=== PATIENT | female | born 1955 | race Caucasian/White ===

== ENCOUNTER → 2019-07-27 10:32 | Outpatient (CLI) | payer MEDICARE, OTHER ==
[~2019-07-27 10:32] MED LIST: ALENDRONAT70 MG/75 M PO; ATIVAN0.5 MG PO; CELEXA40 MG PO; GLUCOPHAGE500 MG PO; HUMULIN N100 U/ML SC; LIPITOR20 MG PO; MOBIC7.5 MG PO; TRAZODONE HCL150 MG PO
--- NOTE | 2019-07-29 14:22 | EC ---
PATIENT:NU NORTON DATE OF SERVICE: 07/27/19 SEX: F MEDICAL RECORD: [id number] DATE OF : 53 LOCATION:[facility] AGE OF PATIENT: 64 ADMISSION DATE: 07/27/19 REFERRING PHYSICIAN: INTERPRETING PHYSICIAN: YUMIKO MONTOYA MD ECHOCARDIOGRAM REPORT ECHO CHARGES 4 ECHO COMPLETE Date: 07/27/19 CLINICAL DIAGNOSIS: HEART MURMUR ECHOCARDIOGRAPHIC MEASUREMENTS (adult normal given) AC root (d.<3.7cm) 3.1 cm LV Septum d (<1.2 cm> 1.4 cm Valve Excursion 1.6 cm LV Septum (systole) 1.6 cm Left Atria (s.<4.0cm> 3.8 cm LVPW d(<1.2cm) 1.5 cm RV (d.<2.3cm) 2.5 cm LVPW (sytole) 1.9 cm LV diastole(<5.6CM) 4.2 cm MV E-F(>70mm/sec) cm LV systole 2.5 cm LVOT Diameter 1.9 cm MV exc.(>10mm) 1.2 cm Est.ejection fraction (50-75%) % DOPPLER: LVIT cm/sec A 100.0cm/sec E 91.0 cm/sec LA cm/sec RVSP 21 mmHg LVOT 101 cm/sec AOP1/2T 772 m/s Asc. Ao 150 cm/sec RVOT 77 cm/sec RA cm/sec PA 105 cm/sec AV Gradient Peak 9.00 mmHg AV Mean 4.95 mmHg AV Area 2.4 cm MV Gradient Peak 5.54 mmHg MV Mean 1.89 mmHg MV Area cm COMMENTS: Director Of Compliance: 2 VELASQUEZ MONTOYA Debt And Budget Counselor: 3 Dr. Jackson TAPE# PACS Pericardial Effusion N DATE OF SERVICE: 07/27/2019 Adequate 2D, color flow imaging, spectral Doppler, and M-Mode Mild LVH. LV internal dimension is normal. Wall motion is normal. EF is greater than or equal to 55%. Aortic valve is tricuspid. No evidence of stenosis by Doppler interrogation. Left atrium is normal at 3.8 cm. Mitral valve shows no prolapse. Trace MR. Right-sided chambers are grossly normal. Trace TR. Mild aortic insufficiency by color flow imaging. ECHOCARDIOGRAM REPORT [id number] NU NORTON TRANSINT:[id number] Voice Confirmation ID: [id number] DOCUMENT ID: [id number] YUMIKO MONTOYA MD at 1422 CC: [id number] DICTATION DATE: 07/28/191423 CAMPUS RECRUITING INTERN: 07/28/19 2326 [facility] CLI 07/27/19 [place] [id number] [place] [id number]
--- NOTE | 2019-07-30 09:14 | ST ---
PATIENT:NU NORTON MEDICAL RECORD: [id number] SEX: F LOCATION:[facility] ORDER #: ADMISSION DATE: 07/27/19 AGE OF PATIENT: 64 REFERRING PHYSICIAN: INTERPRETING PHYSICIAN: ANEL SHIELDS MD DATE OF SERVICE: 07/27/2019 Nuclear Stress Test INDICATIONS: Angina, shortness of breath, abnormal ECG, hypertension, hyperlipidemia, diabetes. The patient was exercised on standard Lexiscan protocol with 33 mCi of sestamibi injected at peak stress, 10 mCi used previously for rest images. FINDINGS: Gated SPECT reveals preserved ejection fraction at 69% with good wall motioning and thickening and brightening throughout all segments. SPECT Imaging: Cardiolite was used as myocardial perfusion agent. There is reversibility anteriorly, apically, and laterally, which includes the basal, mid, apical anterior segments, apical lateral, mid lateral, basal lateral segments as well as the apex itself. The degree of her reversibility is moderate. The amount of myocardium involved is very large. OVERALL IMPRESSION: This is markedly abnormal high-risk nuclear stress test, reversibility throughout the anterior, apical, and lateral segments suggestive of multivessel coronary artery disease. TRANSINT:[id number] Voice Confirmation ID: [id number] DOCUMENT ID: [id number] ANEL SHIEDLS MD at 0914 CC: SCOTTY BOURGEOIS [id number] DICTATION DATE: 07/28/19 1119 ALUMINUM HYDROXIDE PROCESS OPERATOR: 07/29/19 0455 [facility] CLI 07/27/19 [place] [id number] [place] [id number]
[2019-08-05 12:39] VITALS: BMI 27.5
== END | disposition home or self-care (01) ==
LOC: D.HCCARDIO 10:32 → D.HCCECHO 11:30
PROVIDERS: ATTEND Internal Medicine Interventional Cardiology
DX: I20.9 Angina pectoris, unspecified (principal)

== ENCOUNTER 2019-08-05 11:22 | Outpatient (CLI) | payer MEDICARE, OTHER ==
[~2019-08-05] VITALS: Ht 162.6 cm; Wt 72.7 kg
--- NOTE | ~2019-08-05 | HEMODYNAMI ---
PATIENT:NU NORTON MEDICAL RECORD: [id number] : 53 LOCATION:[facility] ADMISSION DATE: 08/05/19 Generatedon:08/05/201914:22 Patient name: NU NORTON Patient #: [id number] SSN: DO B: 1955 Date of study: 08/05/2019 Page: Of Hemodynamic Procedure Report Patient Data Patient Demographics Procedure consent was obtained First Name: NU Gender: Female Last Name: ERROL : 1955 Patient #: [id number] Age: 64 year(s) Race: Additional ID: [id number] Contact details Address: [address] [place] [address] State: [place] City: [place] Zip code: [address] Past Medical History Allergies Allergen Reaction Date Comments Reported Other allergy 08/05/2019 LISINOPRIL Admission Admission Data Admission Date: 08/05/2019 Admission Time: 11:22 Arrival Date: 08/05/2019 Arrival Time: 0:00 Height (in.): 63.78 BSA: 1.78 (m2) Height (cm.): 162 BMI: 27.82 (kg/m2) Weight (lbs.): 160.94 Weight (kg.): 73 Lab Results Lab Result Date: 08/05/2019 Lab Result Time: 0:00 Biochemistry Name Units Result Min Max BUN mg/dl 13 --(--*-)-- 7 18 Creatinine mg/dl 0.7 --(*---)-- 0.6 1.3 eGFR ml/min 88.93523 -*(----)-- 90 120 NONAFRICAN CBC Name Units Result Min Max Hematocrit % 39.3 -*(----)-- 42 54 Hemoglobin g/dl 13.1 -*(----)-- 13.5 17.5 Procedure Procedure Types Cath Procedure Diagnostic Procedure LHC LHC w/Coronaries Procedure Description Procedure Date Procedure Date: 08/05/2019 Procedure Start Time: 14:06 Procedure End Time: 14:19 Procedure Staff Name Function Mariusz Rincon MD Performing Physician Radha Bowser RT Monitor Kim Gibson RT Scrub Austin Gusman RN Nurse Procedure Data Cath Procedure Fluoroscopy Diagnostic fluoroscopy Total fluoroscopy Time: 3.6 time: 3.6 min min Diagnostic fluoroscopy Total fluoroscopy dose: 343 dose: 343 mGy mGy Contrast Material Contrast Material Type Amount (ml) Isovue 300 73 Entry Location Entry Primary Successful Side Size Upsize Upsize Entry Closure Jj ccessful Closure Location (Fr) 1 (Fr) 2 (Fr) Remarks Device Remarks Radial Right 6 Fr Mechanical artery Short Compression Estimated blood loss: 5 ml Diagnostic catheters Device Type Used For End Catheter Placement DIAGNOSTIC [place] 110cm 5 Procedure Fr catheter ([id number]) DIAGNOSTIC JL 3.5 5Fr Procedure catheter ([id number]) Procedure Complications No complications Procedure Medications Medication Administration Route Dosage 0.9% NaCl I.V. 100 ml/hr Oxygen etCO2 Nasal cannula 2 l/min Heparin Flush Bag added to field 2 bags (1000units/500ml NS) Lidocaine 2% added to field 20 Radial Cocktail added to field 1 syringe (Verapamil 2mg/Nitro 400mcg/Heparin 1500units) Versed I.V. 2 mg Fentanyl I.V. 100 mcg Radial Cocktail I.A. 1 syringe (Verapamil 2mg/Nitro 400mcg/Heparin 1500units) Versed I.V. 1 mg Hemodynamics Rest BSA: 1.78 (m2) HGB: 13.1 (g/dl) O2 Consumption: Estimated: 157.61 (ml/min) O2 Co nsumption indexed: Estimated:88.54 (ml/min/m) Heart Rate: 57 (bpm) Pressure Samples Time Site Value (mmHg) Purpose Heart Use Rate(bpm) 14:11 LV 107/1,7 Snapshot 76 Gradients Valve Time Site Site Mean SEP/DFP Peak To Heart Use 1 2 (mmHg) (sec/min) Peak Rate (mmHg) (bpm) Aortic 14:11 LV AO 70 Snapshots Pre Cath Intra NCS Post Cath Vital Signs Time Heart Resp SPO2 etCO2 NIBP Rhythm Pain Sedation Rate (ipm) (%) (mmHg) (mmHg) Status Level (bpm) 13:58:40 55 10 98 43.4 146/69(83) NSR 0 (11) 10(A) , No pain 14:02:58 53 17 92 45.6 116/58(88) NSR 0 (11) 10(A) , No pain 14:07:10 56 12 96 47.9 118/63(96) NSR 0 (11) 10(A) , No pain 14:11:22 65 18 92 45.6 107/42(65) NSR 0 (11) 10(A) , No pain 14:15:38 61 18 94 45.7 103/51(71) NSR 0 (11) 9(A) , No pain 14:19:52 62 13 95 44.9 111/55(77) NSR 0 (11) 9(A) , No pain Medications Time Medication Route Dose Verified Delivered Reason Notes Effectiveness by by 13:58:09 0.9% NaCl I.V. 100 Austin Austin Per ml/hr Naseem Gusman physician RN RN 13:58:18 Oxygen etCO2 2 l/min Austin Austin for low 02 Nasal Lorigan Naseem sats cannula RN RN 13:58:26 Heparin Flush added 2 bags Austin Austin used for Bag to Nsaeem Gusman procedure (1000units/500ml field CARLOS RN NS) 13:58:36 Lidocaine 2% added 20ml Austin Austin for local to vial Lorigan Lorigan anesthetic field CARLOS RN 13:58:46 Radial Cocktail added 1 Austin Autsin used for (Verapamil to syringe Lorigan Lorigan procedure 2mg/Nitro field BREANNA CARLOS 400mcg/Heparin 1500units) 14:06:05 Versed I.V. 2 mg Austin Austin for sedation Naseem Gusman RN, RN 14:07:11 Fentanyl I.V. 100 mcg Austin Austin for sedation Naseem Gusman RN, RN 14:09:42 Radial Cocktail I.A. 1 Austin Mariusz for (Verapamil syringe Lorigan Sergey vasodilation 2mg/Nitro BREANNA [facility] 400mcg/Heparin 1500units) 14:09:55 Versed I.V. 1 mg Austin Austin for sedation Naseem Gusman RN, RN Procedure Log Time Note 13:40:25 Austin Gusman RN sent for patient. Start room use. 13:46:33 Procedure Status Elective Heart Cath (OP). 13:46:34 Time tracking: Regular hours (M-F 7:00 - 5:00) 13:46:38 Plan of Care:Hemodynamics will remain stable., Cardiac rhythm will remain stable., Comfort level will be maintained., Respiratory function will remain adequate., Patient/ family verbilizes understanding of procedure., Procedure tolerated without complication., Recovers from procedure without complications.. 13:47:06 H&P Date Dictated: 07/17/2019 Within 30 days and on chart., H&P Addendum completed by physician on day of procedure. (MUST COMPLETE FOR ALL OUTPATIENTS). 13:47:23 Patient allergic to Other allergyLISINOPRIL 13:48:09 Informed consent obtained and on chart 13:48:22 Patient Weight : 160.94 lbs 13:48:25 Patient Height : 63.78 inches 13:48:29 Arrival Date: 08/05/2019 12:00:00 AM 13:49:03 Lab Result : Hemoglobin 13.1 g/dl 13:49:03 Lab Result : eGFR NONAFRICAN 88.44036 ml/min 13:49:03 Lab Result : BUN 13 mg/dl 13:49:03 Lab Result : Creatinine 0.7 mg/dl 13:49:03 Lab Result : Hematocrit 39.3 % 13:49:11 Patient received from Pre/Post Procedure Room to CCL 1 Alert and oriented. Tansferred to table in Supine position. 13:49:12 Warm blankets applied, and vivienne hugger turned on for patient comfort. 13:49:13 Correct patient and procedure confirmed by team. 13:49:13 ECG and BP/O2 sat monitors applied to patient. 13:57:27 Vital chart was started 13:57:29 Baseline sample Acquired. 13:57:34 Rhythm: sinus bradycardia 13:57:38 Full Disclosure recording started 13:57:39 Pre-procedure instructions explained to patient. 13:57:39 Pre-op teaching completed and patient verbalized understanding. 13:57:41 Family in patients room. 13:57:42 Patient NPO since Midnight. 13:57:45 Is the patient allergic to Iodine/contrast media? No. 13:57:47 Is patient on blood thinner?No 13:57:49 Patient diabetic? Yes. 13:57:50 If diabetic: On Metformin? Yes 13:57:54 If on Metformin: Last Dose? 08/03/2019 13:58:04 Previous problem with sedation/anesthesia? No ? 13:58:06 Snore? Yes 13:58:07 Sleep apnea? No 13:58:09 0.9% NaCl 100 ml/hr I.V. was administered by Austin Gusman RN; Per physician; Verbal order read back and verified. 13:58:09 Deviated septum? No 13:58:11 Opens mouth fully? Yes 13:58:12 Sticks out tongue? Yes 13:58:14 Airway obstruction? No ? 13:58:16 Dentures? No ? 13:58:18 Oxygen 2 l/min etCO2 Nasal cannula was administered by Austin Gusman RN; for low 02 sats; Verbal order read back and verified. 13:58:18 Pre procedure: right dorsailis pedis pulse 2+ Normal; easily identifiable; not easily obliterated 13:58:21 Modified Rodney's test Ulnar < 7 seconds 13:58:26 Heparin Flush Bag (1000units/500ml NS) 2 bags added to field was administered by Austin Gusman RN; used for procedure; Verbal order read back and verified. 13:58:26 Patient pain scale 0/10 .. 13:58:33 IV patent on arrival in left hand with 0.9% NaCl at [facility]. 13:58:35 Lab results completed and on chart. 13:58:36 Lidocaine 2% 20ml vial added to field was administered by Austin Gusman RN; for local anesthetic; Verbal order read back and verified. 13:58:42 Right Radial & Right Groin area was prepped with chlora-prep and draped in sterile fashion 13:58:43 Alarms reviewed by R. N. 13:58:44 Sharps counted by scrub and verified by R.N. 13:58:46 Radial Cocktail (Verapamil 2mg/Nitro 400mcg/Heparin 1500units) 1 syringe added to field was administered by Austin Gusman RN; used for procedure; Verbal order read back and verified. 13:58:46 Use device set Radial Dx or PCI 13:58:47 ACIST Syringe (33731) opened to sterile field. 13:58:48 ACIST Hand Control (44517) opened to sterile field. 13:58:49 Bag Decanter (2001S) opened to sterile field. 13:58:50 ACIST Manifold (50338) opened to sterile field. 13:58:50 Tegaderm 4 x 4 (1626W) opened to sterile field. 13:58:52 Medline Cath Pack ([id number]) opened to sterile field. 13:58:52 MBrace Wrist Support (981148396) opened to sterile field. 13:58:53 EMERALD Guide Wire (665-766) opened to sterile field. 13:58:54 SHEATH 6FR RAIN (2474342) opened to sterile field. 14:03:37 --------ALL STOP TIME OUT------ 14:03:38 Final Timeout: patient, procedure, and site verified with staff and physician. All members of the team are in agreement. 14:03:40 Right Radial & Right Groin site verified by team. 14:03:44 Fire Safety Assessment: A--An alcohol-based skin anteseptic being used preoperatively., C--Open oxygen or nitrous oxide is being used., D--An ESU, laser, or fiber-optic light is being used. 14:03:47 Physical assessment completed. ASA score P 2 - A patient with mild systemic disease as per Mariusz Rincon MD. 14:03:49 2) 60-89 Mildly reduced kidney function, and other findings (as for stage 1) point to kidney disease. 14:03:52 Maximum allowable contrast dose (3.7 X eGFR X 0.75)247 ml. 14:03:56 Sedation plan: IV Moderate Sedation Medication:Versed, Fentanyl 14:06:01 Procedure started. 14:06:05 Versed 2 mg I.V. was administered by Austin Gusman RN; for sedation; Verbal order read back and verified. 14:06:18 Local anesthetic to right radial artery with Lidocaine 2% by Mariusz Rincon MD.INITIAL ACCESS ONLY 14:07:11 Fentanyl 100 mcg I.V. was administered by Austin Gusman RN; for sedation; Verbal order read back and verified. 14:09:22 A 6 Fr Short sheath was inserted into the Right Radial artery 14:09:42 Radial Cocktail (Verapamil 2mg/Nitro 400mcg/Heparin 1500units) 1 syringe I.A. was administered by Mariusz Rincon MD; for vasodilation; Verbal order read back and verified. 14:09:43 A DIAGNOSTIC [place] 110cm 5 Fr catheter (741674) was advanced over the wire and used for Procedure. 14:09:55 Versed 1 mg I.V. was administered by Austin Gusman RN; for sedation; Verbal order read back and verified. 14:10:46 LV gram done using JONES 14:10:50 Injector settings: Ml/sec: 5., Volume: 15, 14:11:06 LV hemodynamics recorded. 14:11:24 EF : 55 % 14:12:12 RCA angiography performed. 14:13:41 Catheter exchanged over wire. 14:13:55 UNABLE TO ENGAGE LCA 14:14:55 A DIAGNOSTIC JL 3.5 5Fr catheter (854247P) was advanced over the wire and used for Procedure. 14:16:27 LCA angiography performed. 14:16:33 Catheter removed. 14:16:44 Procedure ended.(Physican Out) 14:17:34 ZEPHYR REGULAR TR BAND (972437) opened to sterile field. 14:18:06 Sheath removed intact; hemostasis achieved with Mechanical Compression to the Right Radial artery. 14:18:19 Fluoroscopy time 03.60 minutes. 14:18:22 Fluoroscopy dose: 343 mGy 14:18:22 Flurop Dose total: 343 14:18:31 Dose Area Product 86901 mGy/cm. 14:18:35 Contrast amount:Isovue 300 73ml. 14:18:37 Maximum allowable dose exceeded? No. 14:18:38 Sharps counted by scrub and verified by R.N. 14:18:40 [place] band inflated with 10cc of air. 14:18:43 Post-procedure physical assessment completed. ASA score P 2 - A patient with mild systemic disease as per Mariusz Rincon MD. 14:18:49 Post procedure rhythm: sinus rhythm 14:18:53 Estimated blood loss: 5 ml 14:18:56 Post procedure instruction explained to patient.Patient verbalizes understanding. 14:18:59 Patient needs reinforcement of post procedure teaching. 14:19:27 Procedure and supply charges have been captured, reviewed, submitted and are correct. 14:19:30 Procedure Complication : No complications 14:19:32 Vital chart was stopped 14:19:33 See physician's report for complete and final results. 14:19:34 Report given to Pre/Post Procedure Room. 14:19:37 Patient transfered to Pre/Post Procedure Room with Bed. 14:19:39 Procedure ended. 14:19:39 Full Disclosure recording stopped 14:19:44 End room use (Document Last) 14:21:39 End room use (Document Last) 14:21:57 End room use (Document Last) Device Usage Item Name Manufacture Quantity Catalog Hospital Part Current Minima l Lot# / Number Charge Number Stock Stock Serial# Code ACIST Acist 1 07905 046621 490842 614931 20 Syringe Medical (84531) Systems Inc ACIST Hand Acist 1 56876 731907 708889 604120 5 Control Medical (97186) Systems Inc Bag Microtek 1 2001S 688953 60245 609269 5 Decanter Medical Inc. () ACIST Acist 1 35351 967934 021986 023783 5 Manifold Medical (18441) Systems Inc Tegaderm 4 3M 1 1626W 503264 263400 004410 5 x 4 (1626W) Medline Medline 1 [id number] 107689 79792 919776 5 Cath Pack (AUDO62013) MBrace Advanced 1 140-0250-00 596585 39876 814076 5 Wrist Vascular Support Dynamics (160295746) EMERALD Cardinal 1 502-455 349168 335538 325885 5 Guide Wire Health (502-455) SHEATH 6FR Cardinal 1 7488616 120452 6860862 547810 5 [facility] Health (6624356) DIAGNOSTIC Terumo 1 40-5013 385942 131023 399183 5 [place] 110cm 5 Fr catheter (323938) DIAGNOSTIC Cardinal 1 736606Q 492198 902993 544557 5 JL 3.5 5Fr Health catheter (456249C) ZEPHYR Cardinal 1 745438 089959 3705070 953792 5 REGULAR TR Health BAND (286547) Signature Audit [place] Stage Time Signature Unsigned Intra-Procedure 08/05/2019 Radha Bowser 2:21:39 PM RT(R) Intra-Procedure 08/05/2019 Austin 2:21:57 PM Naseem CARLOS Intra-Procedure 08/05/2019 Mariusz Higgins 2:22:26 PM Ramesh [facility] [address] [place] [address]
[2019-08-05] MEDS ORDERED: ALENDRONAT70 MG/75 M PO (12:30)
[2019-08-05] MEDS ORDERED: MOBIC7.5 MG PO (12:30)
[2019-08-05] MEDS ORDERED: TRAZODONE HCL150 MG PO (12:30)
[2019-08-05] MEDS ORDERED: CELEXA40 MG PO (12:30)
[2019-08-05] MEDS ORDERED: GLUCOPHAGE500 MG PO (12:32)
[2019-08-05] MEDS ORDERED: HUMULIN N100 U/ML SC (12:32)
[2019-08-05] MEDS ORDERED: ATIVAN0.5 MG PO (12:33)
[2019-08-05] MEDS ORDERED: LIPITOR20 MG PO (12:33)
[2019-08-05 12:39] VITALS: BP 133/61; Ht 162.6 cm; Wt 72.7 kg
[2019-08-05 12:50] LABS: BASOPHILS 0.4 % (0-2); EOSINOPHILS 3.6 % (0-7); HEMATOCRIT 39.3 % (36.0-48.0); HEMOGLOBIN 13.1 g/dL (12-16); IMMATURE GRANULOCYTES 0.6 % (0-5); MCH 31.1 pg (26.0-34.0); MCHC 33.3 g/dL (31.0-37.0); MCV 93.3 fL (80.0-100.0); MEAN PLATELET VOLUME 9.8 fL (7.4-10.4); MONOCYTES 8.7 % (2-11); NEUTROPHILS 52.7 % (40-80); PLATELET COUNT 231 10x3/uL (130-400); RBC 4.21 10x6/uL (4.00-5.40); RDW 13.4 % (11.5-14.5)
[2019-08-05 13:12] LABS: ALT (SGPT) 24 U/L (10-68); CALC OSMOLALITY 281 mosm/kg (275-300); CALCIUM 8.7 mg/dL (8.5-10.1); CARBON DIOXIDE 29.5 mmol/L (21.0-32.0); CHLORIDE - SERUM 104 mmol/L (98-107); CHOLESTEROL, TOTAL 147 mg/dL (0-200); CREATININE - SERUM 0.7 mg/dL (0.6-1.3); GLUCOSE 112 mg/dL (74-106); HDL CHOLESTEROL 74 mg/dL (32-96); LDL CHOLESTEROL 65 mg/dL (0-100); LDL-HDL RATIO 0.9 ratio (1.5-3.5); POTASSIUM - SERUM 3.9 mmol/L (3.5-5.1); SODIUM 141 mmol/L (136-145); TRIGLYCERIDE 44 mg/dL (30-200); UREA NITROGEN 13 mg/dL (7-18); eGFR NON AFRICAN AMERICAN 89 mL/min (90-120)
--- NOTE | 2019-08-05 14:30 | NUR ---
PT RECEIVED VIA STRETCHER FROM [employer]. PT PLACED ON MONITORS, O2 ON AT 2L/NC. PT DENIES PAIN OR DISCOMFORT. HR NSR RATE 56 NSR, BP 116/56, O2 SAT 91 ON ROOM AIR. ZYPHER BAND AND IMMOBILIZER TO R WRIST, DRESSING CDI NO BLEEDING OR HEMATOMA NOTED. ARM PINK AND WARM, CAP REFILL BRISK. DR MONTOYA AT BEDSIDE TALKED W PT AND REGARDING PLAN OF CARE AND PROCEDURE RESULTS. CALL LIGHT IN REACH.
--- NOTE | 2019-08-05 15:00 | NUR ---
PT RESTING W EYES CLOSED. Z BAND AND IMMOBILIZER IN PLACE, DRESSING CDI NO BLEEDING OR SWELLING NOTED. ARM PINK AND WARM, CAP REFILL BRISK. HR 51, BP 106/51. CALL LIGHT IN REACH, AT BEDSIDE
--- NOTE | 2019-08-05 15:25 | NUR ---
2 CC AIR REMOVED FROM Z BAND, STARTING OOZING SLIGHTLY SO PUT 3 CC AIR BACK IN, WILL MONITOR. ARM PINK AND WARM, CAP REFILL BRISK. VSS. PT SERVED SANDWICH AND DRINK. VSS. PT DENIES PAIN OR NEEDS AT THIS TIME. AT BEDSIDE.
--- NOTE | 2019-08-05 15:48 | NUR ---
PT SITTING UP IN BED FINISHING LUNCH. 4 CC AIR REMOVED FROM Z BAND W/O BLEEDING NOTED. ARM PINK AND WARM, CAP REFILL BRISK. PT DENIES PAIN OR NEEDS AT THIS TIME. REMAINS AT BEDSIDE. CALL LIGHT IN REACH. VSS.
--- NOTE | 2019-08-05 16:15 | NUR ---
DISCHARGE INSTRUCTIONS REVEIWED W PT AND , BOTH VERBALIZED UNDERSTANDING. IV REMOVED W CATH INTACT, MONITORS REMOVED. 2 ADD'L CC AIR REMOVED FROM Z BAND W/O BLEEDING OR SWELLING. PT UP TO DRESS FOR DISCHARGE
--- NOTE | 2019-08-05 16:30 | NUR ---
1625 REMAININA AIR AND Z BAND REMOVED W/O BLEEDING NOTED. NO HEMATOMA NOTED. 2X2 AND TEGADERM DRESSING APPLIED. 1630 PT DISCHARGED VIA WC TO WAITING IN PRIVATE VEHICLE. PT HAD ALL BELONGINGS AND DISCHARGE INSTRUCTIONS
--- NOTE | 2019-08-06 13:56 | OP ---
PATIENT NAME: NU NORTON MEDICAL RECORD: [id number] :53 LOCATION:[facility] ADMISSION DATE: SURGEON: YUMIKO MONTOYA MD DATE OF OPERATION: 08/05/2019 PROCEDURES: Left heart catheterization, selective coronary angiography, right femoral artery approach. CATHETERS USED: Radial sheath, [place] catheter. The procedure was well tolerated, the patient was returned to the [place], sheath was removed. TR band was placed. FINDINGS: Left ventriculography with 30-degree JONES view: Normal wall motion and normal systolic function. CORONARY ANATOMY: LEFT MAIN: Left main is free of disease. LAD: Free of disease in the diagonal system. CIRCUMFLEX: Free of disease in the marginal system. RIGHT CORONARY ARTERY: Dominant artery, gives to PDA, free of disease. IMPRESSION: Normal LV systolic function, normal coronary anatomy. TRANSINT:[id number] Voice Confirmation ID: [id number] DOCUMENT ID: [id number] YUMIKO MONTOYA MD at 1356 CC: [id number] DICTATION DATE: 08/05/19 1429 FILLING ROOM OPERATOR: 08/05/19 2252 [facility] CLI 08/05/19 [place] [id number] [place] [address]
== END 2019-08-05 16:30 | disposition home or self-care (01) ==
LOC: D.CATH 11:22
PROVIDERS: ATTEND Internal Medicine Interventional Cardiology
DX: I20.0 Unstable angina (principal); R94.30 Abnormal result of cardiovascular function study, unspecified

== ENCOUNTER 2020-04-16 14:26 | Emergency (ER) | payer MEDICARE, OTHER ==
[~2020-04-16] VITALS: Ht 162.6 cm; Wt 77.3 kg
[2020-04-16 14:30] VITALS: Ht 162.6 cm; Wt 77.3 kg
[2020-04-16 15:56] VITALS: BP 148/73
== END 2020-04-16 15:56 | disposition home or self-care (01) ==
LOC: D.ER 14:26
DX: M25.572 Pain in left ankle and joints of left foot (principal); M25.571 Pain in right ankle and joints of right foot; W19.XXXA Unspecified fall, initial encounter; Y93.9 Activity, unspecified; Y92.9 Unspecified place or not applicable; I10 Essential (primary) hypertension